=== PATIENT | male | born 1975 | race Caucasian/White ===

== ENCOUNTER 2016-10-18 07:36 | Emergency (ER) | payer BC ==
[2016-10-18 07:53] VITALS: BP 130/82
--- NOTE | 2016-10-18 08:53 | UC ---
Hand/Wrist HPI - HPI Summary HPI Summary: PAIN AND SWELLING LEFT MIDDLE FINGER X 1 DAY NO KNOWN INJURY , SUDDEN ONSET,\ PAIN , SWELLING , REDNESS OF THE LEFT 3RD FINGER , HX OF GOUT - History Of Current Complaint Chief Complaint: UCUpperExtremity Stated Complaint: SWOLLEN FINGERS Time Seen by Provider: 10/18/16 07:55 Hx Obtained From: Patient Onset/Duration: Sudden Onset, Lasting Days - 1, Still Present Severity Initially: Moderate Severity Currently: Moderate Pain Intensity: 7 Pain Scale Used: 0-10 Numeric Character Of Pain: Aching, Throbbing Aggravating Factor(s): Movement Alleviating: Rest, Ice - Allergies/Home Medications Allergies/Adverse Reactions: Allergies Allergy/AdvReac Type Severity Reaction Status Date / Time Lactose Intolerance (GI) AdvReac Vomiting Verified 10/18/16 07:45 Home Medications: Home Medications Colchicine* [Colcrys*] 0.6 mg PO SEE INSTRUCTIONS PRN 10/18/16 [History Confirmed 10/18/16] PMH/Surg Hx/FS Hx/Imm Hx - Additional Past Medical History Additional PMH: HX OF GOUT - Surgical History Surgical History: None - Family History Known Family History: Negative: Diabetes - Social History Alcohol Use: Occasionally Substance Use Type: None Smoking Status (MU): Never Smoked Tobacco Review of Systems Constitutional: Negative Skin: Negative Eyes: Negative ENT: Negative Respiratory: Negative Cardiovascular: Negative All Other Systems Reviewed And Are Negative: Yes Physical Exam Triage Information Reviewed: Yes Appearance: Well-Appearing, No Pain Distress, Well-Nourished Vital Signs: Initial Vital Signs Temp 98.4 F 10/18/16 07:42 Pulse 75 10/18/16 07:42 Resp 16 10/18/16 07:42 BP 130/82 10/18/16 07:42 Pulse Ox 97 10/18/16 07:42 Eye Exam: Normal Eyes: Positive: Conjunctiva Clear ENT: Positive: Normal ENT inspection, Hearing grossly normal, Pharynx normal Neck: Positive: Supple, Nontender, No Lymphadenopathy Respiratory: Positive: Chest non-tender, Lungs clear, Normal breath sounds Cardiovascular: Positive: RRR, No Murmur, Pulses Normal Musculoskeletal: Positive: Other: - LEFT MIDDLE FINGER: + SWELLING, ERYTHEMA AT PIP, TENDERNESS AT PIP , LIMITER ROM ON FLEXION AND EXTENSION AT PIP Skin Exam: Normal Hand/Wrist Course/Dx - Differential Dx/Diagnosis Provider Diagnoses: GOUT Discharge - Discharge Plan Condition: Stable Disposition: HOME Prescriptions: Indomethacin CAP* [Indocin CAP*] 50 mg PO TID #15 cap Patient Education Materials: Gout (ED) Referrals: Lorenzo Condon MD [Primary Care Provider] - 3 Days
== END 2016-10-18 08:05 | disposition home or self-care (01) ==
LOC: UCCORT 07:36
DX: M10.9 Gout, unspecified (principal); E73.9 Lactose intolerance, unspecified
CPT/HCPCS: 99212; G0463